=== PATIENT | male | born 1950 | race Caucasian/White ===

== ENCOUNTER → 2017-03-09 | Outpatient (CLI) | payer MEDICARE | END | disposition home or self-care (01) | LOC: GMAL 10:08 | PROVIDERS: ATTEND Family Medicine | DX: Z12.5 Encounter for screening for malignant neoplasm of prostate (principal) ==

== ENCOUNTER → 2017-11-04 | Outpatient (CLI) | payer MEDICARE | LOC: GMAL 10:54 | PROVIDERS: ATTEND Family Medicine | DX: D51.3 Other dietary vitamin B12 deficiency anemia (principal); E03.9 Hypothyroidism, unspecified; E55.9 Vitamin D deficiency, unspecified ==

== ENCOUNTER → 2017-11-22 | Outpatient (CLI) | payer MEDICARE | LOC: GMAL 16:59 | PROVIDERS: ATTEND Family Medicine | DX: I50.9 Heart failure, unspecified (principal) ==

== ENCOUNTER 2018-03-06 13:24 | Emergency (ER) | payer MEDICARE ==
[2018-03-06 13:43] VITALS: TEMP 97.8
[2018-03-06] MEDS ORDERED: ASPIRIN (CHEWABLE) 81 MG TAB PO ONE (13:51)
--- NOTE | 2018-03-06 13:55 | ED.PDOC ---
History of Present Illness - General Chief Complaint: Chest Pain/NH Stated Complaint: Chest discomfort Time Seen by Provider: 03/06/18 13:50 Source: patient - History of Present Illness Initial Comments: patient comes in today for chest pain. Patient states the last couple days he has had episodes lasting several minutes of abdominal discomfort with nausea vomiting with radiation up to his left chest. Patient states he has significant pain primarily in the upper abdominal area and over time it seems to radiate. Today he was at [employer] and had sudden episode of severe pain rating his chest with diaphoresis, nausea, and discomfort. By the time he arrived to the hospital via private vehicle the pain had resolved and he was left with an uncomfortable feeling in his abdomen. Patient states he is had this off and on before but never been this severe. He did have an angiogram several years ago for similar episode at that time it was normal but he has not had one since. Patient has not had any diarrhea and had normal bowel movement yesterday. He denies any constipation. Patient denies any fever, chills, cough or shortness of breath. 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 He is currently scheduled to receive the gastric sleeve for weight loss. Timing/Duration: other - 2-3 Severity/Quality: moderate, pressure Location: substernal, epigastric Worsening Factors: nothing Nitro Today/Relief: no nitro taken today Aspirin Treatment Today: no aspirin today, provided by ED Allergies/Adverse Reactions: Allergies Penicillins Allergy (Verified 07/11/14 20:20) Home Medications: Ambulatory Orders Aspirin [Baby Aspirin] 81 mg PO QD 07/20/14 Cholecalciferol [Vitamin D3] 2,000 unit PO DAILY 07/20/14 Carvedilol [Carvedilol] 25 mg PO BID 03/06/18 Cholecalciferol [Eql Vitamin D3] 3,000 unit PO BEDTIME 03/06/18 Cyanocobalamin [B12] 1,000 mcg PO DAILY 03/06/18 Desmopressin Acetate 0.5 tablet PO BID 03/06/18 Diphenhydramine HCl (Sleep) [Sleep Aid] 100 mg PO DAILY 03/06/18 Hydrocortisone 20 mg PO BEDTIME 03/06/18 Hydrocortisone 30 mg PO DAILY 03/06/18 Levothyroxine Sodium 137 mcg PO DAILY 03/06/18 Lovastatin [Lovastatin] 10 mg PO BEDTIME 03/06/18 Metformin HCl [Metformin HCl ER (Osmotic] 500 mg PO DAILY 03/06/18 Naproxen Sodium [Aleve] 220 mg PO BID 03/06/18 Review of Systems - Review of Systems Constitutional: States: weakness. Denies: chills, fever EENTM: States: no symptoms reported Respiratory: States: no symptoms reported. Denies: cough, orthopnea, short of breath, wheezing Cardiology: States: chest pain. Denies: edema, palpitations, syncope Gastrointestinal/Abdominal: States: abdominal pain, nausea. Denies: constipation, diarrhea, vomiting Genitourinary: States: no symptoms reported. Denies: dysuria, frequency, hematuria Musculoskeletal: States: no symptoms reported Skin: States: no symptoms reported Neurological: States: no symptoms reported Past Medical History (General) - Patient Medical History Hx Stroke: No Hx Congestive Heart Failure: No Hx Hypertension: Yes Hx Thyroid Disease: Yes Hx Diabetes: Yes Surgical History: cholecystectomy - Vaccination History Hx Influenza Vaccination: Yes - 2016 Hx Pneumococcal Vaccination: Yes - 2014 - Social History Hx Tobacco Use: Yes - Quit around 1984 Family Medical History - Family History Father Living Status: Hx Family Congestive Heart Failure: Yes Hx Family Hypertension: Yes Hx Cardiac Disease: Yes Hx Family Cancer: Yes - skin Mother Family History: Unknown Physical Exam - Physical Exam General Appearance: Ill Appearing Eyes, Ears, Nose, Throat Exam: PERRL/EOMI, normal ENT inspection, TMs normal, pharynx normal Neck: non-tender, full range of motion, supple, normal inspection Respiratory: chest non-tender, lungs clear, normal breath sounds, no respiratory distress Cardiovascular/Chest: normal peripheral pulses, regular rate, rhythm, no edema, no gallop, no JVD, no murmur Peripheral Pulses: radial,right: 2+, radial,left: 2+ Gastrointestinal/Abdominal: soft, other - distended with normal BS and TTP superior to umbilicus with no rebound or guarding. 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 as tested, alert, oriented x 3 Progress - Progress Progress: 03/06/18 15:12 03/06/18 14:15 EKG STAT Laboratory Results WBC 10.6 K/mm3 (4.8-10.8) 03/06/18 14:25 RBC 4.85 M/mm3 (4.70-6.10) 03/06/18 14:25 Hgb 13.8 gm/dL (14.0-18.0) L 03/06/18 14:25 Hct 41.5 % (42.0-52.0) L 03/06/18 14:25 MCV 85.7 fl (80.0-94.0) 03/06/18 14:25 MCH 28.4 pg (27.0-31.0) 03/06/18 14:25 MCHC 33.2 g/dL (33.0-37.0) 03/06/18 14:25 RDW 14.3 % (11.5-14.5) 03/06/18 14:25 Plt Count 250 K/mm3 (130-400) 03/06/18 14:25 MPV 8.4 fl (7.40-10.4) 03/06/18 14:25 Absolute Neuts (auto) 7.80 K/uL (1.8-6.8) H 03/06/18 14:25 Absolute Lymphs (auto) 1.60 K/uL (1.0-3.4) 03/06/18 14:25 Absolute Monos (auto) 0.40 K/uL (0.2-0.8) 03/06/18 14:25 Absolute Eos (auto) 0.70 K/uL (0.0-0.4) H 03/06/18 14:25 Absolute Basos (auto) 0.10 K/uL (0.0-0.1) 03/06/18 14:25 Neutrophils % 73.1 % (42.0-78.0) 03/06/18 14:25 Lymphocytes % 15.3 % (20.0-50.0) L 03/06/18 14:25 Monocytes % 3.5 % (2.0-9.0) 03/06/18 14:25 Eosinophils % 7.0 % (1.0-5.0) H 03/06/18 14:25 Basophils % 1.1 % (0.0-2.0) 03/06/18 14:25 PT 11.8 SECONDS (9.4-12.5) 03/06/18 14:25 INR 1.020 03/06/18 14:25 PTT (SP) 32.0 SECONDS (25.1-36.5) 03/06/18 14:25 Sodium 130 mmol/L (135-145) L 03/06/18 14:25 Potassium 3.7 mmol/L (3.6-5.0) 03/06/18 14:25 Chloride 92 mmol/L (101-111) L 03/06/18 14:25 Carbon Dioxide 31 mmol/L (21-31) 03/06/18 14:25 Anion Gap 10.7 (12-18) L 03/06/18 14:25 BUN 22 mg/dL (7-18) H 03/06/18 14:25 Creatinine 1.07 mg/dL (0.6-1.3) 03/06/18 14:25 BUN/Creatinine Ratio 20.6 (10-20) H 03/06/18 14:25 Random Glucose 150 mg/dL (70-105) H 03/06/18 14:25 Serum Osmolality 267.0 mOsm/L (275-295) L 03/06/18 14:25 Calcium 8.9 mg/dL (8.4-10.2) 03/06/18 14:25 Magnesium 2.0 mg/dL (1.8-2.5) 03/06/18 14:25 Total Bilirubin 0.6 mg/dL (0.2-1.0) 03/06/18 14:25 AST 16 IU/L (10-42) 03/06/18 14:25 ALT 22 IU/L (10-60) 03/06/18 14:25 Alkaline Phosphatase 84 IU/L (42-121) 03/06/18 14:25 Creatine Kinase 32 IU/L (38-174) L 03/06/18 14:25 CK-MB (CK-2) 1.0 ng/mL (0.0-4.4) 03/06/18 14:25 CK-MB (CK-2) % Not Reportable 03/06/18 14:25 Troponin I < 0.02 ng/mL (0.01-0.05) 03/06/18 14:25 Serum Total Protein 6.8 gm/dL (6.4-8.2) 03/06/18 14:25 Albumin 3.3 g/dl (3.2-5.5) 03/06/18 14:25 Globulin 3.5 gm/dL (2.3-3.5) 03/06/18 14:25 Albumin/Globulin Ratio 0.9 (1.1-1.9) L 03/06/18 14:25 Amylase 28 U/L (28-100) 03/06/18 14:25 Lipase 19 U/L (22-51) L 03/06/18 14:25 Chest Xray and Abdominal Xray normal EKG Sinus bradycardia with RBBB no ST elevation or depression Patient looks much better and has stayed asymptomatic. However, his episodes are getting worse in the last several days and he has significant risk with his morbid obesity, smoking history (although distant) and his DM. Will call for transfer as he is a candidate for evaluation by cardiology for unstable angina. Departure - Departure Clinical Impression: Chest pain Qualifiers: Chest pain type: chest pain due to myocardial ischemia Ischemic chest pain type : unspecified angina pectoris type Qualified Code(s): I20.9 - Angina pectoris, unspecified Disposition: Transfer to Hospital Departure Forms: ED Discharge - Pt. Copy, Patient Portal Self Enrollment Instructions: DI for Chest Pain Referrals: Misbah Venegas III, MD [Primary Care Provider] - 1-2 Weeks Home Medications: Ambulatory Orders Aspirin [Baby Aspirin] 81 mg PO QD 07/20/14 Cholecalciferol [Vitamin D3] 2,000 unit PO DAILY 07/20/14 Carvedilol [Carvedilol] 25 mg PO BID 03/06/18 Cholecalciferol [Eql Vitamin D3] 3,000 unit PO BEDTIME 03/06/18 Cyanocobalamin [B12] 1,000 mcg PO DAILY 03/06/18 Desmopressin Acetate 0.5 tablet PO BID 03/06/18 Diphenhydramine HCl (Sleep) [Sleep Aid] 100 mg PO DAILY 03/06/18 Hydrocortisone 20 mg PO BEDTIME 03/06/18 Hydrocortisone 30 mg PO DAILY 03/06/18 Levothyroxine Sodium 137 mcg PO DAILY 03/06/18 Lovastatin [Lovastatin] 10 mg PO BEDTIME 03/06/18 Metformin HCl [Metformin HCl ER (Osmotic] 500 mg PO DAILY 03/06/18 Naproxen Sodium [Aleve] 220 mg PO BID 03/06/18 Comments: patient is aymptomatic at this time and did not require nitro nor blood thinners here. However, I am concerned with the escalation of events in the last several days. We have called for transfer and Dr Navarro has accepted.
--- NOTE | 2018-03-06 14:39 | RAD ---
PROCEDURE: Abdomen 1 View Clinical History: chest pain Indication: Same as above Comparison: Chest x-ray done concurrently Technique: Single supine view of the abdomen and pelvis. Findings: There is no gross evidence of free air in the abdomen or the pelvis on this single supine view of the abdomen and pelvis. The small and large bowel gas pattern does not show any evidence of obstruction, ileus or bowel wall thickening. There is no visualization of radiopaque calculi in the outline of the urinary tract. There is no significant constipation. There is prior cholecystectomy Impression: Unremarkable bowel gas pattern Location of Interpretation: [id number] Electronically signed by: Puneet Simons MD 03/06/2018 2:38 PM CDT Workstation: [id number]
--- NOTE | 2018-03-06 14:40 | RAD ---
PROCEDURE: XR CHEST 1 VIEW HISTORY: chest pain COMPARISON: 07/20/2014 TECHNIQUE: Single projection of the chest was done. FINDINGS: Underlying changes of COPD are again noted. There is no interval change in the mild left basilar discoid atelectasis/parenchymal scarring since the prior study done on 07/20/2014. There is interval appearance of mild right basilar infiltrate/atelectasis . There are no pneumothoraces or pleural effusions. The pulmonary vascularity is normal. The cardiomediastinal silhouette is unremarkable for patient's age and sex. IMPRESSION: There is interval appearance of mild right basilar infiltrate/atelectasis . There is no interval change in the mild left basilar discoid atelectasis/parenchymal scarring since the prior study done on 07/20/2014. Electronically signed by: Puneet Simons MD 03/06/2018 2:39 PM CDT Workstation: [id number]
[2018-03-06 16:30] VITALS: BP 136/75; O2SAT 99
== END 2018-03-06 16:29 | disposition short-term general hospital (02) ==
LOC: ER 13:24
DX: I20.9 Angina pectoris, unspecified (principal); I10 Essential (primary) hypertension; E11.9 Type 2 diabetes mellitus without complications; E07.9 Disorder of thyroid, unspecified; E66.01 Morbid (severe) obesity due to excess calories; Z87.891 Personal history of nicotine dependence; Z79.82 Long term (current) use of aspirin; Z79.84 Long term (current) use of oral hypoglycemic drugs; Z79.899 Other long term (current) drug therapy

== ENCOUNTER → 2018-03-23 | Outpatient (CLI) | payer MEDICARE ==
--- NOTE | 2018-03-23 12:59 | CT ---
EXAM DESCRIPTION: Abdomen/Pelvis w/wo Contrast CLINICAL HISTORY: 67 years Male, ABDOMINAL PAIN COMPARISON: None available. TECHNIQUE: Contiguous 3 mm axial images were obtained from the lung bases to the level of the proximal femora after the administration of intravenous and oral contrast. Sagittal and coronal reconstructions were reviewed. FINDINGS: THORAX: The imaged lower thorax demonstrates no gross abnormality. LIVER: The liver demonstrates normal size and density with no intrahepatic biliary ductal dilatation or focal masses. GALLBLADDER: Surgically absent. PANCREAS: Appears normal with no cystic or solid lesions. SPLEEN: Normal ADRENAL GLANDS: Normal with no nodules or masses. KIDNEYS: Both kidneys enhance symmetrically with no hydronephrosis or nephrolithiasis or perinephric fluid collections. A simple cyst is identified upper pole of the right kidney. No focal masses are identified. The visualized ureters appear grossly unremarkable. STOMACH: Small hiatal hernia is noted. The stomach is normal, limiting detailed evaluation. SMALL BOWEL: The small bowel loops demonstrate variable degrees of distention with no abnormal dilatation or other signs to suggest bowel obstruction. LARGE BOWEL: Scattered diverticulosis is noted. The colon is not well-distended limiting evaluation. No evidence of free intraperitoneal air or fluid. RETROPERITONEUM: The abdominal aorta is nonaneurysmal with no significant atherosclerosis. The inferior vena cava is normal in size and caliber. No abnormally enlarged retroperitoneal lymph nodes are identified. URINARY BLADDER: The urinary bladder is mildly distended. Urachal remnant is identified which appears to herniate into the right inguinal canal. The prostate gland and seminal vesicles appear normal. ADDITIONAL FINDINGS: Large fat containing bilateral inguinal hernias are identified. BONES: Mild degenerative changes are identified in the visualized bones. Grade 1 anterolisthesis of L4 over L5 secondary to bilateral pars interarticularis defects. IMPRESSION: 1. Small hiatal hernia. 2. Scattered colonic diverticulosis. 3. Large fat-containing bilateral inguinal hernias are identified. Urachal remnant noted along the dome of the urinary bladder appears to herniate into the right inguinal canal. This exam was performed according to our departmental dose-optimization program, which includes automated exposure control, adjustment of the mA and/or kV according to patient size and/or use of iterative reconstruction technique. Electronically signed by: Landy Gonzalez MD 03/23/2018 12:58 PM CDT
== END ==
LOC: CT 09:03
PROVIDERS: ATTEND Family Medicine
DX: K44.9 Diaphragmatic hernia without obstruction or gangrene (principal); K40.20 Bilateral inguinal hernia, without obstruction or gangrene, not specified as recurrent; K57.30 Diverticulosis of large intestine without perforation or abscess without bleeding

== ENCOUNTER → 2018-05-16 | Outpatient (CLI) | payer MEDICARE | LOC: GMAL 11:48 | PROVIDERS: ATTEND Family Medicine | DX: R79.89 Other specified abnormal findings of blood chemistry (principal) ==

== ENCOUNTER → 2018-08-15 | Outpatient (CLI) | payer MEDICARE | LOC: GMAL 12:07 | PROVIDERS: ATTEND Family Medicine | DX: R79.89 Other specified abnormal findings of blood chemistry (principal) ==

== ENCOUNTER → 2019-05-18 | Outpatient (CLI) | payer MEDICARE | LOC: GMAL 11:01 | PROVIDERS: ATTEND Family Medicine | DX: D51.3 Other dietary vitamin B12 deficiency anemia (principal); I10 Essential (primary) hypertension; E11.9 Type 2 diabetes mellitus without complications; E03.9 Hypothyroidism, unspecified; E78.49 Other hyperlipidemia; E55.9 Vitamin D deficiency, unspecified; Z12.5 Encounter for screening for malignant neoplasm of prostate | CPT/HCPCS: 82306; 82607; 84439; 84443; 84481; G0103 ==

== ENCOUNTER 2020-02-01 14:21 | Emergency (ER) | payer MEDICARE ==
[2020-02-01] MEDS ORDERED: SODIUM CHLORIDE 0.9% (FLUSH) 10 ML SYG IV PRN (14:37)
[2020-02-01] MEDS ORDERED: cloNIDine HCL 0.1 MG TAB PO ONE (14:37)
--- NOTE | 2020-02-01 15:13 | RAD ---
EXAM DESCRIPTION: Chest,1 View CLINICAL HISTORY: 69 years Male, SOB COMPARISON: 03/06/2018. TECHNIQUE: AP portable chest. FINDINGS/IMPRESSION: The lungs are hypoventilated. Bibasilar streaky opacity (more pronounced within the left lung base) is favored to represent subsegmental atelectasis. Partial obscuration of the right cardiophrenic sulcus relating to overlying soft tissues (and underpenetration). No pneumothorax. The heart is normal in size. No acute osseous abnormality. Electronically signed by: Js Hancock DO 02/01/2020 3:12 PM CDT
--- NOTE | 2020-02-01 15:45 | ED.PDOC ---
History of Present Illness - General Chief Complaint: Blood Pressure Problem Stated Complaint: high blood pressure, chest pain last night Time Seen by Provider: 02/01/20 14:37 Source: patient, RN notes reviewed, Vital Signs reviewed, EMS notes reviewed, family Exam Limitations: no limitations - History of Present Illness Initial Comments: This is a 69-year-old male with longstanding history of hypertension presenting to the emergency room with elevated BP reading for the past 3 or 4 days intermittently. States BP was over 200 today, with associated chest pain and shortness of breath when the BP is elevated. He denies any severe headaches, weakness/numbness/tingling, changes in mental status, speech changes. He takes carvedilol and losartan/HCTZ daily and denies any missed doses. No unusual leg swelling. No sick contacts. No flu/coronavirus contacts, no recent travel. Allergies/Adverse Reactions: Allergies Penicillins Allergy (Verified 02/01/20 14:48) Home Medications: Ambulatory Orders Aspirin [Baby Aspirin] 81 mg PO QD 07/20/14 Cholecalciferol [Vitamin D3] 2,000 unit PO DAILY 07/20/14 Carvedilol 25 mg PO BID 03/06/18 Cholecalciferol [Eql Vitamin D3] 3,000 unit PO BEDTIME 03/06/18 Cyanocobalamin [B12] 1,000 mcg PO DAILY 03/06/18 Desmopressin Acetate 0.5 tablet PO BID 03/06/18 Diphenhydramine HCl (Sleep) [Sleep Aid] 100 mg PO DAILY 03/06/18 Hydrocortisone 20 mg PO BEDTIME 03/06/18 Hydrocortisone 30 mg PO DAILY 03/06/18 Levothyroxine Sodium 137 mcg PO DAILY 03/06/18 Lovastatin 10 mg PO BEDTIME 03/06/18 Metformin HCl [Metformin HCl ER (Osmotic] 500 mg PO DAILY 03/06/18 Naproxen Sodium [Aleve] 220 mg PO BID 03/06/18 hydrALAZINE HCl [(None)] 25 mg PO Q6H PRN #60 tab 02/01/20 Review of Systems - Review of Systems Constitutional: Denies: chills, fever EENTM: Denies: blurred vision, double vision, nose congestion, throat pain Respiratory: States: short of breath. Denies: cough, orthopnea Cardiology: States: chest pain. Denies: edema Gastrointestinal/Abdominal: Denies: abdominal pain, constipation, diarrhea, nausea Musculoskeletal: Denies: back pain, joint pain, muscle stiffness Skin: Denies: lesions, rash Neurological: Denies: headache, numbness, paresthesia Endocrine: States: no symptoms reported Hematologic/Lymphatic: States: no symptoms reported Past Medical History (General) - Patient Medical History Hx Stroke: No Hx Congestive Heart Failure: No Hx Hypertension: Yes Hx Thyroid Disease: Yes Hx Diabetes: Yes Surgical History: cholecystectomy - Vaccination History Hx Influenza Vaccination: Yes - 2016 Hx Pneumococcal Vaccination: Yes - 2014 - Social History Hx Tobacco Use: Yes - Quit around 1984 Hx Alcohol Use: No Hx Substance Use: No Hx Substance Use Treatment: No Hx Depression: No Family Medical History - Family History Father Living Status: Hx Family Congestive Heart Failure: Yes Hx Family Hypertension: Yes Hx Cardiac Disease: Yes Hx Family Cancer: Yes - skin Mother Family History: Unknown Physical Exam - Physical Exam General Appearance: Alert, Comfortable, No apparent distress, Obese Eye Exam: bilateral normal Ears, Nose, Throat: hearing grossly normal, normal ENT inspection Neck: non-tender, supple, normal inspection Respiratory: chest non-tender, lungs clear, normal breath sounds, no respiratory distress, no accessory muscle use Cardiovascular/Chest: normal peripheral pulses, regular rate, rhythm, no edema, no gallop, no JVD, no murmur Gastrointestinal/Abdominal: non tender, soft Back Exam: normal inspection, no vertebral tenderness Extremity: normal range of motion, non-tender Neurologic: no motor/sensory deficits, alert, normal mood/affect, oriented x 3 Skin Exam: normal color, warm/dry Progress - Progress Progress: 02/01/20 16:08 Rechecked. Patient feels much better at this time. Reviewed labs, BP down to 185/90. He has had approximately 15% decrease after p.o. clonidine. Strongly recommended he follow-up with his PCP in 3 to 5 days for recheck and for discussion regarding adding third BP medication to his regimen. We will start hydralazine. Strict warnings given to return the emergency room for worsening BP, chest pain, shortness of breath, increased leg swelling, severe headaches/weakness/numbness/tingling, or any other concerns. MDM: DDX includes CKD/SONI, ACS, congestive heart failure, accelerated hypertension Patient with markedly elevated BPs at 220/120 on arrival. He was given 0.2 of clonidine and BP decreased to 185/90. He had a 15% decrease in his BP in the ER. He reported previous chest pain/shortness of breath, but is asymptomatic in the emergency room. No indication for admission. Will discharge home with hydralazine, strongly recommended follow-up with PCP in 3 to 5 days for recheck and ongoing management of his blood pressure. GABY WAY DO [facility] #[id number] - Results/Orders Results/Orders: EKG reviewed by me personally at 1447. Normal sinus rhythm, rate of 64, normal axis, borderline QTC at 474, right bundle branch block, no ST segment elevations or depressions EXAM DESCRIPTION: Chest,1 View CLINICAL HISTORY: 69 years Male, SOB COMPARISON: 03/06/2018. TECHNIQUE: AP portable chest. FINDINGS/IMPRESSION: The lungs are hypoventilated. Bibasilar streaky opacity (more pronounced within the left lung base) is favored to represent subsegmental atelectasis. Partial obscuration of the right cardiophrenic sulcus relating to overlying soft tissues (and underpenetration). No pneumothorax. The heart is normal in size. No acute osseous abnormality. Electronically signed by: Js Hancock DO 02/01/2020 3:12 PM CDT 02/01/20 14:37 IV Care:Saline Lock per Protoc QSHIFT Telemetry ONCE Sodium Chloride 0.9% (Flush) [Saline Flush Syringe] 3 ml IV PRN PRN 02/01/20 14:38 Pulse Oximetry Assessment DAILY 02/01/20 14:45 EKG STAT 02/02/20 09:00 Pulse Ox Daily Laboratory Results - last 24 hr 02/01/20 02/01/20 02/01/20 14:40 14:40 14:40 WBC 11.0 H RBC 4.66 L Hgb 13.1 L Hct 40.0 L MCV 85.8 MCH 28.1 MCHC 32.8 L RDW 14.6 H Plt Count 228 MPV 8.4 Absolute Neuts (auto) 9.00 H Absolute Lymphs (auto) 1.50 Absolute Monos (auto) 0.30 Absolute Eos (auto) 0.10 Absolute Basos (auto) 0.10 Neutrophils % 81.9 H Lymphocytes % 13.3 L Monocytes % 3.0 Eosinophils % 1.2 Basophils % 0.6 Sodium 137 Potassium 3.9 Chloride 102 Carbon Dioxide 28 Anion Gap 10.9 L BUN 23 H Creatinine 1.20 BUN/Creatinine Ratio 19.2 Random Glucose 200 H Serum Osmolality 283.1 Calcium 8.6 Magnesium 1.8 Total Bilirubin 0.5 AST 15 ALT 18 Alkaline Phosphatase 91 Troponin I < 0.02 B-Natriuretic Peptide 50.6 Serum Total Protein 7.2 Albumin 3.6 Globulin 3.6 H Albumin/Globulin Ratio 1.0 L Departure - Departure Clinical Impression: Accelerated hypertension Disposition: Discharge to Home or Self Care Condition: Good Departure Forms: ED Discharge - Pt. Copy, Patient Portal Self Enrollment Instructions: DI for High Blood Pressure Referrals: Misbah Venegas III, MD [Primary Care Provider] - 1-5 Days Prescriptions: hydrALAZINE HCl [(None)] 25 mg PO Q6H PRN #60 tab PRN Reason: Systolic BP > 180 Home Medications: Ambulatory Orders Aspirin [Baby Aspirin] 81 mg PO QD 07/20/14 Cholecalciferol [Vitamin D3] 2,000 unit PO DAILY 07/20/14 Carvedilol 25 mg PO BID 03/06/18 Cholecalciferol [Eql Vitamin D3] 3,000 unit PO BEDTIME 03/06/18 Cyanocobalamin [B12] 1,000 mcg PO DAILY 03/06/18 Desmopressin Acetate 0.5 tablet PO BID 03/06/18 Diphenhydramine HCl (Sleep) [Sleep Aid] 100 mg PO DAILY 03/06/18 Hydrocortisone 20 mg PO BEDTIME 03/06/18 Hydrocortisone 30 mg PO DAILY 03/06/18 Levothyroxine Sodium 137 mcg PO DAILY 03/06/18 Lovastatin 10 mg PO BEDTIME 03/06/18 Metformin HCl [Metformin HCl ER (Osmotic] 500 mg PO DAILY 03/06/18 Naproxen Sodium [Aleve] 220 mg PO BID 03/06/18 hydrALAZINE HCl [(None)] 25 mg PO Q6H PRN #60 tab 02/01/20
[2020-02-01 16:39] VITALS: O2SAT 97
[2020-02-01 16:41] VITALS: BP 197/91; TEMP 98.2
== END 2020-02-01 16:35 | disposition home or self-care (01) ==
LOC: ER 14:21
DX: I10 Essential (primary) hypertension (principal); R07.9 Chest pain, unspecified; E11.9 Type 2 diabetes mellitus without complications; Z79.899 Other long term (current) drug therapy; Z87.891 Personal history of nicotine dependence

== ENCOUNTER → 2020-07-29 | Outpatient (CLI) | payer MEDICARE | LOC: GMAL 17:18 | PROVIDERS: ATTEND Family Medicine | DX: E03.9 Hypothyroidism, unspecified (principal); I10 Essential (primary) hypertension; D51.3 Other dietary vitamin B12 deficiency anemia; Z12.5 Encounter for screening for malignant neoplasm of prostate; E55.9 Vitamin D deficiency, unspecified; I50.9 Heart failure, unspecified; E78.49 Other hyperlipidemia; Z13.29 Encounter for screening for other suspected endocrine disorder | CPT/HCPCS: 82306; 82607; 82652; 84403; 84439; 84443; G0103 ==